=== PATIENT | female | born 1955 | race Caucasian/White ===

== ENCOUNTER → 2017-09-30 | Outpatient (CLI) | payer OTHER | LOC: CIMAGING 14:26 | PROVIDERS: ATTEND Family Medicine | DX: Z12.31 Encounter for screening mammogram for malignant neoplasm of breast (principal); Z80.3 Family history of malignant neoplasm of breast | CPT/HCPCS: G0202 ==

== ENCOUNTER 2018-01-21 07:55 | Emergency (ER) | payer OTHER ==
[2018-01-21] MEDS ORDERED: PROMETHAZINE HCL 25 MG/ML INJ IVP ONE (08:03)
[2018-01-21] MEDS ORDERED: FAMOTIDINE 20 MG in NS 100 ML IV ONE (08:03)
[2018-01-21] MEDS ORDERED: NS 1,000 ML IV ONE ×2 (08:03)
[2018-01-21] MEDS ORDERED: HYDROmorphONE/DILAUDID 2 MG/ML INJ IVP ONE ×2 (08:03→08:16)
[2018-01-21] MEDS ORDERED: ONDANSETRON 4 MG/2 ML VIAL IVP ONE (08:03)
--- NOTE | 2018-01-21 08:09 | EDPHY ---
H & P Time Seen by Provider: 01/21/18 07:56 HPI/ROS: HPI Nausea vomiting and diarrhea. 62-year-old female by private vehicle with . This patient reports that on Wednesday evening she developed some nausea this was followed by profuse watery brown diarrhea. she started vomiting. Since this time she has had multiple episodes of nonbilious, nonbloody vomiting. She reports multiple episodes of continued brown watery diarrhea. Denies any bloody or melenic stool. She has not been able to keep any fluids down since last night. No foreign travel. No change in diet. No new medications. No ill contacts. She was cleaning up the spilled water from [place] This is her only unusual activity reported according to her . She describes having crampy abdominal discomfort. She has not been on antibiotics. ROS: Constitutional: No fever, no chills. No weakness. Eyes: No discharge. No changes in vision. ENT: No sore throat. No nasal congestion or rhinorrhea. Respiratory: No cough. No shortness of breath. Cardiac: No chest pain, no palpitations. Gastrointestinal: As above. Genitourinary: No hematuria. No dysuria or increased frequency with urination. Musculoskeletal: No back pain. No neck pain. No myalgias or arthralgias. Skin: No rashes. Neurological: No headache. No focal weakness or altered sensation. Past medical history: Hypertension. Social history: Nonsmoker. No alcohol. Here with her . Physical Exam: General Appearance: Alert, she appears uncomfortable. She is intermittently dry heaving. This patient is responding to questions appropriately and in full sentences. This patient appears generally well-hydrated and well-nourished. Eyes: Pupils equal and round no pallor or injection. No lid edema, erythema or injection. Respiratory: There are no retractions, lungs are clear to auscultation with good air movement bilaterally. Cardiovascular: Regular rate and rhythm. No murmur. Gastrointestinal: Abdomen is soft and nontender, no masses, bowel sounds normal. No focal tenderness at McBurney's point. No Pike sign. Neurological: Motor sensory function is grossly intact. Cranial nerves are normal. Gait is normal. Skin: Warm and dry, no rashes. Musculoskeletal: Neck is supple and nontender. Extremities are symmetrical. All joints range without pain or impingement. Psychiatric: No agitation. No depression. Database: EKG: Imaging: Procedures: Emergency department course: IV was placed. Vital signs reviewed. She was started on IV normal saline with 1-2 L to be given over the next 1-2 hours. She was initially given 20 mg of IV Pepcid, 4 mg of IV Zofran, 6.25 mg of IV Phenergan and 0.25 mg of IV hydromorphone. The IV hydromorphone was given to slow her diarrhea. 8:30 a.m., patient's potassium low at 2.8. She will be started on IV potassium at 10 mEq per hour while she is in the emergency department. Once her vomiting is controlled we will try to get some oral potassium in her. 9:00 a.m., patient re-evaluated. She is on her 2nd L of IV normal saline. Vital signs reviewed and are normal. She is feeling much better. Repeat abdominal exam she is soft, nontender nondistended. 9:50 p.m., patient re-evaluated. She is taking oral fluids without issue at this time. She states she feels much better. She denies any abdominal pain. She feels comfortable going home. I will prescribe her Zofran as well as a potassium supplement. I discussed not starting the potassium until tomorrow. We will provide her with oral potassium a 20 mEq to be taken 3 times daily for the next 2-3 days. She will follow up with her primary care physician on Wednesday or Wednesday for re-evaluation and repeat potassium. Return to emergency department precautions were reviewed with her. All of her questions were answered. She was discharged in good condition. Differential Diagnosis: The differential diagnosis on this patient includes but is not limited to food borne illness, viral gastroenteritis, exposure to entero toxigenic pathogen. Surgical etiology unlikely. This represents a partial list of diagnoses considered. These considerations are based on history, physical exam, past history, reassessment and diagnostic testing. Smoking Status: Never smoked Constitutional: Initial Vital Signs Temperature (C) 36.9 C 01/21/18 07:58 Heart Rate 88 01/21/18 07:58 Respiratory Rate 20 01/21/18 07:58 Blood Pressure 131/89 H 01/21/18 07:58 O2 Sat (%) 98 01/21/18 07:58 O2 Delivery Mode Room Air Allergies/Adverse Reactions: codeine Allergy (Verified 01/21/18 08:05) Vomiting neomycin Allergy (Verified 01/21/18 08:05) Vomiting Home Medications: Medication Instructions Recorded Aleve 04/13/14 Calcium 04/13/14 Fish Oil 04/13/14 Losartan-Hctz 100-25 mg Tab 04/13/14 Multi-Vitamin Daily 04/13/14 Venlafaxine HCl 04/13/14 Lovastatin 01/21/18 Metoprolol Succinate Xr 01/21/18 Ondansetron Odt [Zofran Odt 4 mg 4 mg PO Q4PRN PRN #10 tab 01/21/18 (*)] Potassium Chloride Po [Klor 20 meq PO TID #6 pkt 01/21/18 Packets 20 meq (*)] QUEtiapine FUMARATE 01/21/18 Medical Decision Making - Data Points Laboratory Results: Laboratory Results 01/21/18 08:10 01/21/18 01/21/18 01/21/18 08:20 08:15 08:10 WBC RBC Hgb POC Hgb 18.0 gm/dL H gm/dL (12.6-16.3) Hct POC Hct 53 % H % (38-47) MCV MCH MCHC RDW Plt Count MPV Neut % (Auto) Lymph % (Auto) Isabella % (Auto) Eos % (Auto) Baso % (Auto) Nucleat RBC Rel Count Absolute Neuts (auto) Absolute Lymphs (auto) Absolute Monos (auto) Absolute Eos (auto) Absolute Basos (auto) Absolute Nucleated RBC Immature Gran % Immature Gran # POC Sodium 142 mEq/L mEq/L (135-145) Sodium Pending POC Potassium 2.8 mEq/L L mEq/L (3.3-5.0) Potassium Pending POC Chloride 101 mEq/L mEq/L (97-110) Chloride Pending Carbon Dioxide Pending Anion Gap Pending POC BUN 19 mg/dL mg/dL (7-23) BUN Pending Creatinine Pending POC Creatinine 0.8 mg/dL mg/dL (0.6-1.0) Estimated GFR Pending Glucose Pending POC Glucose 140 mg/dL H mg/dL (70-100) Calcium Pending Total Bilirubin 1.0 mg/dL mg/dL (0.1-1.4) Conjugated Bilirubin 0.5 mg/dL mg/dL (0.0-0.5) Unconjugated Bilirubin 0.5 mg/dL mg/dL (0.0-1.1) AST 24 IU/L IU/L (14-46) ALT 39 IU/L IU/L (9-52) Alkaline Phosphatase 103 IU/L IU/L (38-126) Total Protein 8.1 g/dL g/dL (6.3-8.2) Albumin 4.9 g/dL g/dL (3.5-5.0) Lipase 56 IU/L IU/L (23-300) 01/21/18 08:10 WBC 11.62 10^3/uL H 10^3/uL (3.80-9.50) RBC 5.78 10^6/uL H 10^6/uL (4.18-5.33) Hgb 17.9 g/dL H g/dL (12.6-16.3) POC Hgb Hct 51.5 % H % (38.0-47.0) POC Hct MCV 89.1 fL fL (81.5-99.8) MCH 31.0 pg pg (27.9-34.1) MCHC 34.8 g/dL g/dL (32.4-36.7) RDW 12.9 % % (11.5-15.2) Plt Count 376 10^3/uL 10^3/uL (150-400) MPV 9.0 fL fL (8.7-11.7) Neut % (Auto) 75.4 % H % (39.3-74.2) Lymph % (Auto) 15.7 % % (15.0-45.0) Isabella % (Auto) 7.0 % % (4.5-13.0) Eos % (Auto) 1.3 % % (0.6-7.6) Baso % (Auto) 0.3 % % (0.3-1.7) Nucleat RBC Rel Count 0.0 % % (0.0-0.2) Absolute Neuts (auto) 8.76 10^3/uL H 10^3/uL (1.70-6.50) Absolute Lymphs (auto) 1.82 10^3/uL 10^3/uL (1.00-3.00) Absolute Monos (auto) 0.81 10^3/uL H 10^3/uL (0.30-0.80) Absolute Eos (auto) 0.15 10^3/uL 10^3/uL (0.03-0.40) Absolute Basos (auto) 0.04 10^3/uL 10^3/uL (0.02-0.10) Absolute Nucleated RBC 0.00 10^3/uL 10^3/uL (0-0.01) Immature Gran % 0.3 % % (0.0-1.1) Immature Gran # 0.04 10^3/uL 10^3/uL (0.00-0.10) POC Sodium Sodium POC Potassium Potassium POC Chloride Chloride Carbon Dioxide Anion Gap POC BUN BUN Creatinine POC Creatinine Estimated GFR Glucose POC Glucose Calcium Total Bilirubin Conjugated Bilirubin Unconjugated Bilirubin AST ALT Alkaline Phosphatase Total Protein Albumin Lipase Medications Given: Discontinued Medications Hydromorphone HCl (Dilaudid) 0.25 mg IVP EDNOW ONE Stop: 01/21/18 08:04 Last Admin: 01/21/18 08:57 Dose: Not Given Hydromorphone HCl (Dilaudid) 0.25 mg IVP EDNOW ONE Stop: 01/21/18 08:17 Last Admin: 01/21/18 08:34 Dose: 0.25 mg Sodium Chloride (Ns) 1,000 mls @ 0 mls/hr IV EDNOW ONE; Wide Open PRN Reason: Protocol Stop: 01/21/18 08:04 Last Admin: 01/21/18 08:03 Dose: 1,000 mls Sodium Chloride (Ns) 1,000 mls @ 0 mls/hr IV EDNOW ONE; Wide Open PRN Reason: Protocol Stop: 01/21/18 08:04 Last Admin: 01/21/18 08:45 Dose: 1,000 mls Famotidine 20 mg/ Sodium (Chloride) 102 mls @ 408 mls/hr IV EDNOW ONE Stop: 01/21/18 08:17 Last Admin: 01/21/18 08:56 Dose: Not Given Famotidine 20 mg/ Sodium (Chloride) 102 mls @ 408 mls/hr IV EDNOW ONE Stop: 01/21/18 08:29 Last Admin: 01/21/18 08:18 Dose: 20 mls Potassium Chloride (Potassium Cl 10 Meq (Premix)) 100 mls @ 100 mls/hr IV EDNOW ONE Stop: 01/21/18 09:27 Last Admin: 01/21/18 08:39 Dose: 100 mls Ondansetron HCl (Zofran) 4 mg IVP EDNOW ONE Stop: 01/21/18 08:04 Last Admin: 01/21/18 08:18 Dose: 4 mg Promethazine HCl (Phenergan) 6.25 mg IVP EDNOW ONE Stop: 01/21/18 08:04 Last Admin: 01/21/18 08:10 Dose: 6.25 mg Point of Care Test Results: 01/21/18 08:15 POC Sodium 142 POC Potassium 2.8 L POC Chloride 101 POC BUN 19 POC Creatinine 0.8 POC Glucose 140 H Departure - Departure Disposition: Home, Routine, Self-Care Clinical Impression: Vomiting and diarrhea, Hypokalemia Condition: Good Instructions: Gastroenteritis (ED) Additional Instructions: Read and follow provided instructions. Follow-up with your primary care physician on Wednesday for re-evaluation and repeat of your potassium level. Take medication as prescribed as prescribed for nausea and potassium repletion. Start taking oral potassium tomorrow, Wednesday, as prescribed. Take 3 times a day for 2 days. Keep well hydrated. Advance diet as tolerated. Return to the emergency department for worsening symptoms, worsening abdominal pain, vomiting and inability to keep fluids down despite medications or other serious concerns. Referrals: Meera Mclaughlin MD [Primary Care Provider] - As per Instructions Prescriptions: Ondansetron Odt [Zofran Odt 4 mg (*)] 4 mg PO Q4PRN PRN #10 tab PRN Reason: For Nausea & Vomiting Potassium Chloride Po [Klor Packets 20 meq (*)] 20 meq PO TID #6 pkt
[2018-01-21] MEDS ORDERED: FAMOTIDINE 20 MG/2 ML SDV ONE (08:14)
[2018-01-21] MEDS: FAMOTIDINE 20 MG in NS 100 ML IV ONE ×2 (08:18→13:24)
[2018-01-21] MEDS ORDERED: FAMOTIDINE 20 MG/2 ML SDV IVP ONE (08:18)
[2018-01-21] MEDS ORDERED: POTASSIUM Cl (KCl) 100 ML IV ONE (08:28)
[2018-01-21 08:32] LABS: PLATELET COUNT 376 10^3/uL (150-400)
[2018-01-21 09:55] VITALS: O2SAT 98
[2018-01-21 10:03] VITALS: BP 115/66; PULSE 74; RESP 14; TEMP 98.2
== END 2018-01-21 10:11 | disposition home or self-care (01) ==
LOC: CED 07:55
DX: E87.6 Hypokalemia (principal); I10 Essential (primary) hypertension; E86.9 Volume depletion, unspecified
CPT/HCPCS: 80048-PO; 80076-PO; 82947-QW; 83690-PO; 85025-PO; 96365; J1170; J2405; J2550; J3480

== ENCOUNTER → 2018-01-24 | Outpatient (CLI) | payer OTHER | LOC: FIMAGING 10:31 | PROVIDERS: ATTEND Family Medicine | DX: Z13.820 Encounter for screening for osteoporosis (principal); M85.89 Other specified disorders of bone density and structure, multiple sites ==